=== PATIENT | male | born 1980 | race Caucasian/White ===

== ENCOUNTER 2022-03-07 12:39 | Emergency (ER) | payer OTHER, SELFPAY ==
[2022-03-07 12:55] VITALS: BP 165/87; PULSE 97; RESP 14; TEMP 36.9; O2SAT 100; BMI 27.8
--- NOTE | 2022-03-07 13:02 | ED_ITS ---
HPI - Abdominal Pain General: Chief Complaint: Abdominal Pain Stated Complaint: abd pain Time Seen by Provider: 03/07/22 13:01 History of Present Illness: 41-year-old male patient comes in with left lower quadrant abdominal pain. Patient has had pain on and off for the last 2 to 3 mo nths or longer. Patient became concerned due to becoming febrile with similar pain over the weekend. Patient appears nontoxic. Patient appears in mild pain. Patient denies any chronic medical problems. Associated Symptoms: Reports diarrhea, fever(s) and nausea; Denies constipation and vomiting Review of Systems Const: Reports: fever(s) Card: Denies: chest pain Resp: Denies: dyspnea GI: Reports: nausea and diarrhea; Denies: vomiting or constipation Physical Exam Const: COMMON NORMALS: alert HENMT: COMMON NORMALS: normocephalic HEAD & SCALP: normocephalic Neck/C-Spine: COMMON NORMALS: full ROM Resp: COMMON NORMALS: normal respiratory effort and clear to auscultation bilaterally AUSCULTATION: clear to auscultation bilaterally Cardio: COMMON NORMALS: regular rate and regular rhythm RATE: regular rate RHYTHM: regular rhythm GI: COMMON NORMALS: Soft to palpation AUSCULTATION: Yes Hyperactive bowel sounds present PALPATION: Yes Soft to palpation and Yes Tenderness to palpation present (GI) Details: LLQ Extremity: COMMON NORMALS: no pedal edema Neuro: SENSORIUM/ORIENTATION: Yes alert Skin: COMMON NORMALS: no rashes or lesions noted GENERAL SKIN EXAM: no rashes or lesions noted Course Vital Signs: Vital signs: Vital Signs Temperature 98.4 F 03/07/22 12:55 Pulse Rate 97 03/07/22 12:55 Respiratory Rate 14 03/07/22 12:55 Blood Pressure 165/87 03/07/22 12:55 Pulse Oximetry 100 03/07/22 12:55 Oxygen Delivery Me thod 03/07/22 12:55 MDM - Abdominal Pain Medical Decision Making 41-year-old male patient comes in today for left lower quadrant abdominal pain. On exam patient has a soft abdomen with Hyperactive bowel sounds and tenderness in the left lower quadrant. Vital signs are normal except for some elevation of blood pressure. Differential diagnosis includes but not limited to constipation, bowel obstruction, diverticulitis, hernia, colitis. CBC was unremarkable, CMP was unremarkable. CT of the abdomen and pelvis noted some diverticulosis but without any obvious signs of diverticulitis with some mild sigmoid thickening suggesting of a chronic diverticulosis. With patient's history I think he might of had a small flare of his diverticulitis we will go ahead and cover with Cipro and Flagyl for 5 days and recommend follow-up with primary care. Patient may need further evaluation and examination with colonoscopy. Case management was requested to help patient with primary care follow-up. Patient stated understanding and agreed to plan. With need for return for worsening symptoms. Lab Data : 03/07/22 13:26 03/07/22 13:26 Labs/Radiology: Radiology Impressions Abdomen/Pelvis CT 03/07/22 13:03 IMPRESSION: 1. No acute abdominal or pelvic abnormalities. 2. Mild distal colonic diverticulosis without acute diverticulitis. Mild circumferential wall thickening in the sigmoid from chronic diverticulosis. 3. No renal obstruction 4. Very small umbilical hernia contains fat only. Laboratory Results WBC 4.7 10^3/uL (4.0-10.0) 03/07/22 13:26 RBC 4.80 10^6/uL (4.1-5.3) 03/07/22 13:26 Hgb 14.4 g/dL (11.7-16.6) 03/07/22 13:26 Hct 41.9 % (42.0-52.0) L 03/07/22 13:26 MCV 87.3 fl (80-94) 03/07/22 13:26 MCH 30.0 pg (28.0-34.0) 03/07/22 13:26 MCHC 34.4 g/dL (30.0-36.0) 03/07/22 13:26 RDW 12.6 % (12.1-15.1) 03/07/22 13:26 Plt Count 191 10^3/cmm (130-400) 03/07/22 13:26 MPV 11.9 fL (7.4-10.4) H 03/07/22 13:26 Neut % (Auto) 63.0 % 03/07/22 13:26 Lymph % (Auto) 24.3 % 03/07/22 13:26 [place] % (Auto) 8.0 % 03/07/22 13:26 Eos % (Auto) 4.1 % 03/07/22 13:26 Baso % (Auto) 0.4 % 03/07/22 13:26 Neut # (Auto) 2.93 10^3/uL (1.8-7.7) 03/07/22 13:26 Lymph # (Auto) 1.1 10^3/uL (0.8-4.8) 03/07/22 13:26 [place] # (Auto) 0.4 10^3/uL (0.2-0.9) 03/07/22 13:26 Eos # (Auto) 0.2 10^3/uL (0.0-0.8) 03/07/22 13:26 Baso # (Auto) 0.0 10^3/uL (0.0-0.1) 03/07/22 13:26 Nucleated RBC % (auto) 0 % 03/07/22 13:26 Nucleated RBCs # 0.0 /100WBC 03/07/22 13:26 Sodium 141 mmol/L (136-145) 03/07/22 13:26 Potassium 4.0 mmol/L (3.5-5.1) 03/07/22 13:26 Chloride 104 mmol/L (98-107) 03/07/22 13:26 Carbon Dioxide 27 mmol/L (22-29) 03/07/22 13:26 Anion Gap 14.0 (5-19) 03/07/22 13:26 BUN 9 mg/dL (6-20) 03/07/22 13:26 Creatinine 0.7 mg/dL (0.7-1.2) 03/07/22 13:26 GFR Calculation 124.3 mL/min (90-130) 03/07/22 13:26 Glucose 101 mg/dL (65-115) 03/07/22 13:26 Calculated Osmolality 291 mOsm/kg (285-295) 03/07/22 13:26 Calcium 8.9 mg/dL (8.5-10.5) 03/07/22 13:26 Total Bilirubin 0.7 mg/dL (0.15-1.2) 03/07/22 13:26 AST 14 U/L (0-40) 03/07/22 13:26 ALT 16 U/L (0-41) 03/07/22 13:26 Alkaline Phosphatase 72 U/L (40-130) 03/07/22 13:26 Total Protein 6.1 g/dL (6.6-8.7) L 03/07/22 13:26 Albumin 3.7 g/dL (3.5-5.2) 03/07/22 13:26 Globulin 2.4 g/dL (1.3-4.6) 03/07/22 13:26 Lipase 19 U/L (13-60) 03/07/22 13:26 Discharge Plan Discharge Patient Disposition: Home Clinical Impression: Diverticulitis Condition: Stable Prescriptions: New ciprofloxacin HCl 500 mg tablet 500 mg PO BID Qty: 10 0RF metronidazole 500 mg tablet 500 mg PO BID Qty: 10 0RF Discharge Orders: Discharge ED (Routine); Ordered 03/07/22 Ordered By: Pantera Lucas Discharge Diet: Usual diet Discharge Activity: Increase activity as tolerated Patient Instructions: Diverticulitis (ED) Activity Restrictions/Additional Instructions: Drink plenty of water and fluids. Use acetaminophen and ibuprofen for the pain. Activity as tolerated. Follow-up with primary care in 2 to 3 days for recheck. Return to ER for worsening symptoms such as fever greater than 100.4, inability to hold fluids down, blood in vomit or stool. Coding Level of Care Code ED Manager [employer] for [employer] Fwd Exam Comprehensive
--- NOTE | 2022-03-07 13:03 | CT_ITS ---
WS: [id number] CT ABDOMEN AND PELVIS WITH CONTRAST HISTORY: LLQ pain, concern for infection TECHNIQUE: Imaging performed of the abdomen and pelvis with IV contrast. Single phase imaging of the abdomen. Coronal and sagittal reformats are submitted. All CT scans at [facility] use at [address] one of these dose optimization techniques: automated exposure control; mA and/or kV adjustment per patient size (includes targeted exams where dose is matched to clinical indication); or iterative re construction. IV CONTRAST: Omnipaque 350; 80 mL IV. Oral contrast: No DLP: 764.75 mGy.cm COMPARISON: None available. Lower thorax: Lung bases are clear. Heart is normal size. No hiatal hernia. Liver/biliary system: Normal size with no intrahepatic dilatation. Gallbladder: Normal. No gallstones or wall thickening. No pericholecystic fluid. Pancreas: Normal size pancreas and pancreatic duct. No adjacent inflammation. Spleen: Normal size spleen. No mass or infarct. Adrenal glands: Normal. Right kidney: Normal. Left kidney: Normal. Aorta: Normal. Lymphadenopathy: None. Free fluid: None. GI tract: Normally distended stomach. No small bowel obstruction. Mild diffuse constipation. The appe ndix is normal. There are a few small diverticula throughout the sigmoid colon. No acute diverticulit is. Abdominal wall: Small fat-containing umbilical hernia. Pelvis: No free fluid or adenopathy. Bones: L4 anterolisthesis by 7 mm. Bilateral pars defects at L4. CT/CT abdomen pelvis w con* [id number] IMPRESSION: 1. No acute abdominal or pelvic abnormalities. 2. Mild distal colonic diverticulosis without acute diverticulitis. Mild circu mferential wall thickening in the sigmoid from chronic diverticulosis. 3. No renal obstruction 4. Very small umbilical hernia contains fat only.
[2022-03-07 13:41] LABS: Basophils % 0.4 %; Eosinophils # 0.2 10^3/uL (0.0-0.8); Eosinophils % 4.1 %; Hematocrit 41.9 % (42.0-52.0); Hemoglobin 14.4 g/dL (11.7-16.6); Lymphocytes # 1.1 10^3/uL (0.8-4.8); Lymphocytes % 24.3 %; Mean Corpuscular HGB Conc 34.4 g/dL (30.0-36.0); Mean Corpuscular Volume 87.3 fl (80-94); Mean Platelet Volume 11.9 fL (7.4-10.4); Monocytes # 0.4 10^3/uL (0.2-0.9); Neutrophils # 2.93 10^3/uL (1.8-7.7); Nucleated Red Blood Cells % 0 %; Platelet Count 191 10^3/cmm (130-400); Red Cell Distribution Width 12.6 % (12.1-15.1); White Blood Count 4.7 10^3/uL (4.0-10.0)
[2022-03-07] MEDS: iohexol 350 mg/mL 100 mL Btl IV (13:43)
[2022-03-07 14:06] LABS: Alanine Aminotransferase 16 U/L (0-41); Albumin Level 3.7 g/dL (3.5-5.2); Alkaline Phosphatase 72 U/L (40-130); Aspartate Amino Transferase 14 U/L (0-40); Blood Urea Nitrogen 9 mg/dL (6-20); Calcium 8.9 mg/dL (8.5-10.5); Carbon Dioxide 27 mmol/L (22-29); Chloride 104 mmol/L (98-107); Creatinine Clr Calc Pharmacy 160.0249; Globulin 2.4 g/dL (1.3-4.6); Glomerular Filtration Rate 124.3 mL/min (90-130); Glucose 101 mg/dL (65-115); Lipase 19 U/L (13-60); Osmolality Calculated 291 mOsm/kg (285-295); Sodium 141 mmol/L (136-145); Total Bilirubin 0.7 mg/dL (0.15-1.2); Total Protein 6.1 g/dL (6.6-8.7)
--- NOTE | 2022-03-08 09:41 | DCPLANNER ---
data management manager had message to speak with patient about getting established with a primary care physician. data management manager called patient he stated that he would like help in getting established with a physician. Patient instructed caser to speak with his . data management manager called patients and unable to speak with her at this time, and unable to leave a voicemail due to no voice mail being set up.
== END 2022-03-07 14:28 | disposition home or self-care (01) ==
PROVIDERS: Emergency Medicine; Emergency Provider Nurse Practitioner Family
DX: K57.92 Diverticulitis of intestine, part unspecified, without perforation or abscess without bleeding (principal)
CPT/HCPCS: 74177; 80053; 83690; 85025; 99285; Q9967

== ENCOUNTER 2022-08-03 17:29 | Outpatient (CLI) | payer OTHER, SELFPAY ==
--- NOTE | 2022-08-03 | XRR_ITS ---
PROCEDURE INFORMATION: Exam: XR Cervical Spine Exam date and time: 08/03/2022 5:47 PM Age: 42 years old Clinical indication: Patient HX: PT C/O neck pain for several months. ; Additional info: Cervicalgia TECHNIQUE: Imaging protocol: Radiologic exam of the cervical spine. Views: 2 or 3 views. AP Lateral Odontoid 3 views COMPARISON: No relevant prior studies available. FINDINGS: Bones/joints: There is straightening of the alignment of the cervical spine (loss of lordotic curvature), which may be related to positioning, muscle spasm or degenerative change. There are no fractures seen. Mild C4-C5 and moderate C5-C6 through C7-T1 disc space narrowing is seen, related to degenerative disc disease change. The facet joint, spinolaminar line and spinous process alignment is normal. The vertebral body heights appear unremarkable. The atlanto-dental alignment appears normal. Small anterior degenerative osteophytes are seen at the C5-C6 through C7-T1 levels. Soft tissues: The prevertebral soft tissues appear unremarkable. The other visualized neck soft tissues appear grossly unremarkable. Notes: If there is further clinical concern, CT of the cervical spine or MRI may be performed for complete assessment. XR/XR cervical spine 3V* [id number] IMPRESSION: No fractures of the cervical spine. Degenerative changes, as noted above.
== END 2022-08-03 17:30 | disposition home or self-care (01) ==
LOC: RAD 17:31
PROVIDERS: Visit Provider Chiropractor
DX: M54.2 Cervicalgia (principal); M25.78 Osteophyte, vertebrae; M48.02 Spinal stenosis, cervical region; M48.03 Spinal stenosis, cervicothoracic region
CPT/HCPCS: 72040